=== PATIENT | male | born 1985 | race Caucasian/White ===

== ENCOUNTER 2023-06-23 11:37 | Outpatient (REF) | payer MEDICAID, SELFPAY ==
[2023-06-26 20:58] LABS: TS Negative Control Passed; TS Panel A 1; TS Panel B 28; TS Positive Control Passed; TSpotTB Positive (Negative)
== END 2023-06-23 11:38 | disposition home or self-care (01) ==
LOC: HO.CHCLDS 11:37
PROVIDERS: Visit Provider Student in an Organized Health Care Education/Training Program
DX: Z11.1 Encounter for screening for respiratory tuberculosis (principal)
CPT/HCPCS: 36415; 86481

== ENCOUNTER 2023-07-07 08:54 | Outpatient (REF) | payer MEDICAID, SELFPAY ==
--- NOTE | ~2023-07-07 | XR_ITS ---
EXAMINATION: XR CHEST CLINICAL INFORMATION: Positive TB test COMPARISON: None available. TECHNIQUE: 2 views of the chest were obtained. FINDINGS: No significant abnormality is noted involving the heart, lungs, mediastinum, bony thorax or soft tissues. XR/XR chest 2V IMPRESSION: No evidence of acute or chronic tuberculosis seen
== END 2023-07-07 08:55 | disposition home or self-care (01) ==
LOC: HO.HHCX 08:54
PROVIDERS: Visit Provider Student in an Organized Health Care Education/Training Program
DX: R76.11 Nonspecific reaction to tuberculin skin test without active tuberculosis (principal)
CPT/HCPCS: 71046

== ENCOUNTER 2024-07-09 09:31 | Outpatient (REF) | payer MEDICAID, SELFPAY ==
[2024-07-09 15:04] LABS: Alanine Aminotransferase 22 U/L (0-40); Albumin Level 4.3 g/dL (3.5-5.0); Alkaline Phosphatase 50 U/L (39-117); Anion Gap 12 (12-20); Aspartate Amino Transferase 20 U/L (5-37); Bilirubin Direct 0.1 mg/dL (0.0-0.5); Bilirubin Total 0.5 mg/dL (0.0-1.0); Blood Urea Nitrogen 21 mg/dL (9-16); Calcium 9.8 mg/dL (8.4-10.2); Carbon Dioxide 26 mmol/L (22-29); Chloride 105 mmol/L (96-108); Cholesterol 264 mg/dL (<200); Estimated Glomerular Filt Rate > 60; Glucose Random 218 mg/dL (60-115); HDL Cholesterol 46 mg/dL (>40); LDL Cholesterol Calculated 194 mg/dL (<100); Potassium 4.3 mmol/L (3.3-5.1); Sodium 139 mmol/L (135-145); Total Protein 7.5 g/dL (6.5-8.0); Triglycerides 122 mg/dL (<150)
== END 2024-07-09 09:32 | disposition home or self-care (01) ==
LOC: HO.CHCLDS 09:31
PROVIDERS: Visit Provider Student in an Organized Health Care Education/Training Program
DX: E11.9 Type 2 diabetes mellitus without complications (principal); I10 Essential (primary) hypertension; Z79.4 Long term (current) use of insulin
CPT/HCPCS: 36415; 80048; 80061; 80076

== ENCOUNTER 2025-11-05 11:21 | Outpatient (REF) | payer MEDICAID, SELFPAY ==
--- OUTSIDE RECORDS SUMMARY | 2025-11-05 10:45 | XMS_ITS | Encounter Summary ---
Author Organization [employer] Address [address] [place] [address] 7 [place] [address] Care Team Providers Care Instruction Dean Name Role Phone Sumit Nieto CNP Primary Care Provider [phone] Reason for Referral * Consultation (Routine) - Pending Review Specialty Diagnoses / Procedures Referred By Jonh sena Referred To Contact Urology Diagnoses Erectile dysfunction, unspecified erectile dysfunction type Sumit Nieto CNP [address] [place] [address] Phone: tel: fax: Referral ID Status Reason Start Date Expiration Date Visits Requested Visits Authorized [id number] Pending Review Specialty Services Required 5 11/05/2026 1 1 Encounter Details Date Type Department Care Team (Late st Contact Info) Description 11/05/2025 10:45 AM EST Office Visit [facility] [address] [place] [address] Sumit Nieto CNP [address] [place] [address] Essential hypertension (Primary Dx); Hypercholesteremia; Type 2 diabetes mellitus without complication, without long-term current use of insulin (HCC); Encounter to establish care; Erectile dysfunction, unspecified erectile dysfunction type; Encounter for immunization Social History Tobacco Use Types Packs/Day Years Used Date Smoking Tobacco: Never Smokeless Tobacco: Never Depression Answer Date Recorded Patient Health Questionnaire-9 Score 1 08/15/2024 Patient Health Questionnaire-9 Score 1 08/15/2024 Last PHQ-9: Questionnaire Data Not on file 1 Housing Stability Answer Date Recorded What is your housing situation today? I have [place] 09/11/[address] you li ve. Do you have problems with any of the following? None of the above 09/11/2023 Food Insecurity Answer Date Recorded Within the past 12 months, y ou worried that your food would run out before you got money to buy more: Never True 09/11/2023 Within the past 12 months,th e food you bought just didn't last and you didn't have enough money to get more: Never True Transportation Answer Date Recorded In the past 12 months, has l ack of transportation kept you from medical appts, meetings, work or from getting things needed for daily living? No 09/11/2023 Utilities Answer Date Recorded In the past 12 months, has t he electric, gas, oil or water company threatened to shut off services in your home? No 09/11/2023 Depression Answer Date Recorded Patient Health Questionnaire-2 Score 0 08/15/2024 Sex and Gender Information Value Date Recorded Sex Assigned at Male 09/12/2022 10:20 AM EDT Legal Sex Male 10:20 AM EDT Gender Identity Male 09/12/2022 10:20 AM EDT Sexual Orientation Choose not to disclose 2021 10:20 AM EDT documented as of this encounter Last Filed Vital Signs Vital Sign Reading Time Taken Comments Blood Pressure 156/100 11/05/2025 10:56 AM EST Pulse 92 11/05/2025 10:56 AM EST Temperature 36.7 C (98.1 F) 11/05/2025 10:56 AM EST Respiratory Rate 16 11/05/2025 10:56 AM EST Oxygen Saturation 98% 11/05/2025 10:56 AM EST Inhaled Oxygen Concentration - - Weight 82.1 kg (181 lb) 11/05/2025 10:56 AM EST Height 170.8 cm (5' 7.25 ) 11/05/2025 10:[address] Body Mass Index 28.14 11/05/2025 10:56 AM EST documented in this encounter Plan of Treatment Scheduled Orders Name Type Priority Associated Diagnoses Orde r Schedule Lipid Panel, Standard Lab Today Type 2 diabetes mellitus without complication, without long-term current use of insulin (HCC) Ordered: 11/05/2025 Hemoglobin A1c Lab Today Type 2 diabetes mellitus without complication, without long-term current use of insulin (HCC) Ordered: 11/05/2025 CBC auto differential Lab Today Type 2 diabetes mellitus without complication, without long-term current use of insulin (HCC) Ordered: 11/05/2025 Comprehensive Metabolic Panel Lab Today Type 2 diabetes mellitus without complication, without long-term current use of insulin (HCC) Ordered: 11/05/2025 Albumin, Random Urine W/Creatinine Lab Today Type 2 diabetes mellitus without complication, without long-term current use of insulin (HCC) Ordered: 11/05/2025 Hepatitis C Antibody with Reflex to HCV, RNA, Quantitative, Real-Time PCR Lab Today Encounter to establish care Ordered: 11/05/2025 HIV-1/2 Antigen and Antibodies, Fourth Generation, with Reflexes Lab Today Encounter to establish care Ordered: 11/05/2025 PSA, Total With Reflex to PSA, Free Lab Routine Encounter to establish care Expected: 11/05/2025 (Approximate), Expires: 11/05/2026 TSH W/Reflex to FT4 Lab Routine Encounter to establish care Expected: 11/05/2025 (Approximate), Expires: 11/05/2026 Vitamin D, 25-Hydroxy, Total, Immunoassay Lab Routine Encounter to establish care Expected: 11/05/2025 (Approximate), Expires: 11/05/2026 Scheduled Referrals Name Type Priority Associated Diagnoses Orde r Schedule Referral to Urology Outpatient Referral Routine Erectile dysfunction, unspecified erectile dysfunction type Expected: 11/05/2025 (Approximate), Expires: 11/05/2026 documented as of this encounter Goals Goal Patient Goal Type Associated Problems Recent Progress Patient-Stated? Author Help patients manage their type 2 diabetes Care Plan Help patients manage their type 2 diabetes No Sumit Nieto CNP Weekly blood pressure task Care Plan Weekly blood pressure task No Sumit Nieto CNP Help patients manage their type 2 diabetes Care Plan Help patients manage their type 2 diabetes No Sumit Nieto CNP Patient has chronic kidney disease Care Plan Patient has chronic kidney disease No Sumit Nieto CNP Weekly blood pressure task Care Plan Weekly blood pressure task No Sumit Nieto CNP Patient has chronic kidney disease Care Plan Patient has chronic kidney disease No Sumit Nieto CNP documented as of this encounter Procedures Procedure Name Priority Date/Time Associated Diagnosis Comments POCT GLYCATED HEMOGLOBIN, TOTAL Routine 11/05/2025 10:58 AM EST Type 2 diabetes mellitus without complication, without long-term current use of insulin ([facility]) POCT GLUCOSE (CPT-88562) Routine 11/05/2025 10:57 AM EST Type 2 diabetes mellitus without complication, without long-term current use of insulin ([facility]) documented in this encounter Results * (ABNORMAL) POCT A1c (11/05/2025 10:58 AM EST) Hemoglobin A1C 9.2(A) 4.0 - 5.7 % QC Media Lot # Comment:[id number] Lot# Expiration Date Comment:10/17/2027 Blood 11/05/2025 10:5 8 AM EST Result [facility] POINT OF CARE TEST ENTER/ EDIT ORDERABLES Final Result * (ABNORMAL) POCT glucose manually resulted (CPT-98191) (11/05/2025 10:57 AM EST) Glucose Blood, POC 237(A) 60 - 200 mg/dL QC Media Lot # Comment:[id number] Lot# Expiration Date Comment:02/17/2026 Blood Capillary blood specimen / Unknown 11/05/2025 10:57 AM EST [facility] POINT OF CARE TEST ENTER/ EDIT ORDERABLES Final Result documented in this encounter Visit Diagnoses Diagnosis Essential hypertension- Primary Unspecified essential hypertension Hypercholesteremia Pure hypercholesterolemia Type 2 diabetes mellitus without complication, without long-term current use of insulin ([facility]) Encounter to establish care Erectile dysfunction, unspecified erectile dysfunction type Encounter for immunization documented in this encounter Additional Health Concerns Active Problems Noted Date Diagnosed Date Help patients manage their type 2 diabetes 11/04 Weekly blood pressure task 11/04/2025 Help patients manage their type 2 diabetes 11/04 Patient has chronic kidney disease 11/04/2025 Weekly blood pressure task 11/05/2025 Patient has chronic kidney disease 11/05/2025 Assessment Noted Time PHQ-9 Depression Total Score: 1 08/15/20 24 9:51 AM EDT documented as of this encounter Care Teams Instruction Dean Relationship Specialty Start Date End Date Sumit Nieto CNP [address] [place] [id number] PCP - General Family Medicine 09/09/25 documented as of this encounter
--- OUTSIDE RECORDS SUMMARY | 2025-11-05 11:25 | XMS_ITS | Encounter Summary ---
Author Organization [employer] Address [address] [facility] [address] [place] [address] Care Team Providers Care Physical Therapy Director Name Role Phone Jayla Ramos MD Primary Care Provider [phone] Sumit Nieto CNP Primary Care Provider [phone] Reason for Visit * Reason Onset Date Comments Lab Orders 05/24/2024 Encounter Details Date Type Department Care Team ([facility] st Contact Info) Description 05/24/2024 Telephone [facility] MEDICINE [address] [place] [address] Jayla Ramos MD [address] [place] [address] Lab Orders Social History Tobacco Use Types Packs/Day Years Used Date Smoking Tobacco: Never Assessed Housing Stability Answer Date Recorded What is [...] off services in your home? No 09/11/2023 Sex and Gender Information Value Date Recorded Sex Assigned at Male 09/12/2022 10:20 AM EDT Legal Sex Male 10:20 AM EDT Gender Identity Male 09/12/2022 10:20 AM EDT Sexual Orientation Choose not to disclose 2021 10:20 AM EDT documented as of this encounter Miscellaneous Notes * Telephone Encounter - Dana Clarke RN - 05/27/2024 3:59 PM EDT Pt no showed to last f/u appt. Please call to r/s for new lab orders. * Telephone Encounter - Dung Reyna - 05/24/2024 10:18 AM EDT Tc from the patients EC requesting lab orders on behalf of the patient states has not done labs forquiet some time documented in this encounter Plan of Treatment Not on file documented as of this encounter Visit Diagnoses Not on filedocumented in this encounter Care Teams Physical Therapy Director Relationship Specialty Start Date End Date Jayla Ramos MD [address] [place] [address] PCP - General Family Medicine 10/25/12 09/08/25 Sumit Nieto CNP [address] [place] [id number] PCP - General Family Medicine 09/09/25 documented as of this encounter
--- OUTSIDE RECORDS SUMMARY | 2025-11-05 11:25 | XMS_ITS | Clinical Summary ---
Author Organization [facility] Address [address] [place] [id number] Care Team Providers Care Glove Tagger Name Role Phone Unavailable Primary Care Provider Unavailabl e Social History Tobacco Use Types Packs/Day Years Used Date Smoking Tobacco: Never Smokeless Tobacco: Never Sex and Gender Information Value Date Recorded Sex Assigned at Not on file Legal Sex Male 1:15 PM EST Gender Identity Not on file Sexual Orientation Not on file Last Filed Vital Signs Vital Sign Reading Time Taken Comments Blood Pressure - - Pulse - - Temperature - - Respiratory Rate - - Oxygen Saturation - - Inhaled Oxygen Concentration - - Weight 83.9 kg (185 lb) 03/25/2022 11:31 AM EDT Height 167.6 cm (5' 6 ) 03/25/2022 11:31 AM EDT Body Mass Index 29.86 03/25/2022 11:31 AM EDT Plan of Treatment Health Maintenance Due Date Last Done Comments DTaP,Tdap,and Td Vaccines (1 - Tdap) 2002 Hepatitis B Vaccines (1 of 3 - 19+ 3-dose series) 2002 HPV Vaccines (1 - 3-dose SCD M series) 2010 Depression Screening 11/13/2024 COVID-19 Vaccine (3 - 2024-2 6 season) 2025 08/29/2021, 07/29/2021 Influenza Vaccine (#1) 2025 07/23/2012 RSV Immunization Adult Patients (1 - 1-dose 75+ series) 2058 HIB Vaccines Aged Out No longer eligi ble based on patient's age to complete this topic Hepatitis A Vaccines Aged Out No long er eligible based on patient's age to complete this topic IPV Vaccines Aged Out No longer eligi ble based on patient's age to complete this topic MMR Vaccines Aged Out No longer eligi ble based on patient's age to complete this topic Meningococcal ACWY Vaccine Aged Out N o longer eligible based on patient's age to complete this topic Meningococcal B Vaccine Aged Out No l onger eligible based on patient's age to complete this topic Pneumococcal Vaccine: Pediatrics (0 to 5 Years) and At-Risk Patients (6 to 49 Years) Aged Out No longer eligible b ased on patient's age to complete this topic RSV Immunization Patients Under 20 months Aged Out No longer eligible b ased on patient's age to complete this topic Varicella Vaccines Aged Out No longer eligible based on patient's age to complete this topic
--- OUTSIDE RECORDS SUMMARY | 2025-11-05 11:25 | XMS_ITS | Clinical Summary ---
Author Organization [employer] Address [address] [place] [address] 7[address] [place] [address] Care Team Providers Care Product/Industry Consultant Name Role Phone Sumit Nieto CHINTAN Primary Care Provider [phone] Allergies No known active allergies Medications lisinopril 40 MG tablet TAKE ONE TABLET DAILY 023 Active insulin glargine (Lantus SoloStar) 100 UNIT/ML penIndication s:Type 2 diabetes mellitus without complication, with long-term current use of insulin ([facility]) INJECT 20 UNITS SUBCUTANEOUSLY AT BEDTIME 15 mL 11 024 Active Aspirin Adult Low Strength 81 MG EC tabletIndicat ions:Type 2 diabetes mellitus without complication, with long-term current use of insulin ([facility]) TAKE ONE TABLET BY MOUTH EVERY MORNING 90 tablet 3 024 Active tadalafil (Cialis) 5 MG tablet TAKE ONE TABLET EVERY DAY 10 tablet 024 Active ibuprofen 800 MG tablet TAKE ONE TABLET THREE TIMES DAILY 90 tablet 5 025 Active metFORMIN (Glucophage) 1000 MG tablet TAKE ONE TABLET TWICE DAILY 180 tablet 3 025 Active Easy Touch Lancets 33G/Twist miscIndicatio ns:Type 2 diabetes mellitus without complication, without long-term current use of insulin ([facility]) TEST BLOOD SUGAR TWICE DAILY 100 each 5 025 Active FREESTYLE LITE test stripIndicati ons:Type 2 diabetes mellitus without complication, without long-term current use of insulin ([facility]) TEST BLOOD SUGAR TWICE DAILY 100 strip 5 025 Active Diclofenac Sodium 1 % gel APPLY 2 GRAM'S TO AFFECTED AREA(s) THREE TIMES DAILY NEEDED 100 g 1 025 Active simvastatin (Zocor) 40 MG tablet TAKE ONE TABLET AT BEDTIME 90 tablet 1 025 Active valsartan (Diovan) 40 MG tablet TAKE ONE TABLET EVERY MORNING 90 tablet 1 025 Active amLODIPine (Norvasc) 5 MG tablet TAKE ONE TABLET EVERY DAY 90 tablet 1 025 Active Farxiga 5 MG TAKE ONE TABLET EVERY DAY 90 tablet 1 025 Active glipiZIDE (Glucotrol) 10 MG tabletIndicat ions:Type 2 diabetes mellitus without complication, without long-term current use of insulin (HCC) Take 1 tablet (10 mg) by mouth before breakfast and before evening meal. 360 tablet 1 025 Active glipiZIDE (Glucotrol) 10 MG tablet TAKE TWO TABLETS TWICE DAILY BEFORE MEALS 360 tablet 1 025 2024 Discontinued(R eorder (will not trigger notification to Pharmacy)) Active Problems Problem Noted Date Diagnosed Date Chronic pain of right knee 12/28/2023 Assessment & Plan (12/28/2023 11:19 PM EST): No swelling, no trauma, no erythema, will order a xray for evaluation, continue applying ice/rest joint, avoid heavy lifting, will prescribe voltaren gel Abdominal pain 01/10/2012 Diabetes mellitus 01/10/2012 Essential hypertension 09/13/2011 Otitis media 08/30/2011 Skin sensation disturbance 03/31/2011 Encounters Date Type Department Care Team Description 11/05/2025 10:45 AM EST Office Visit [facility] & PEDS [address] [place] [address] Sumit Nieto CNP Essential hypertension (Primary Dx); Hypercholesteremia; Type 2 diabetes mellitus without complication, without long-term current use of insulin (HCC); Encounter to establish care; Erectile dysfunction, unspecified erectile dysfunction type; Encounter for immunization 11/05/2025 Travel 08/13/2025 Refill [facility] [address] [place] [address] Jayla Ramos MD from Last 3 Months Immunizations Immunization Administration Dates Next Due Influenza, Split (incl. purified surface antigen ) 07/23/2012 Pneumococcal Conjugate PCV 20 11/05/2025 Tdap 08/15/2024 Social History Tobacco Use Types Packs/Day Years Used Date Smoking Tobacco: Never Smokeless Tobacco: Never Tobacco Cessation:Counseling Given: Not Answered Depression Answer Date Recorded Patient Health Questionnaire-9 [...] not to disclose 2021 10:20 AM EDT Last Filed Vital Signs Vital Sign Reading [...] Mass Index 28.14 11/05/2025 10:56 AM EST Plan of Treatment Health Maintenance Due Date Last Done Comments HIV Screening 1983 Disability Screening 1983 Eye Exam 1993 Alcohol/Substance Use Screening 1995 Family Planning (PISQ) 1998 HPV Vaccines (1 - Male 3-dose series) 1998 Hepatitis C Screening 2001 Hepatitis B Vaccines (1 of 3 - 19+ 3-dose series) 2002 Diabetes: Urine Protein Screening 08/04/2022 08/04/2021, 08/04/2021 SDOH Screening 01/21/2025 01/22/2024 Lipid Panel 07/09/2025 07/09/2024, 08/04/2021 COVID-19 Vaccine ( - season) 2025 08/29/2021, 07/29/2021 Influenza Vaccine (#1) 2025 07/23/2012 Depression Screening 08/15/2025 08/15/2024, 08/15/20 Diabetes: Foot Exam 08/15/2025 08/15/2024, 08/15/2024, 08/15/2024, Additional history exists Tobacco Screening 08/15/2025 08/15/2024 Diabetes: Hemoglobin A1C 02/03/2026 025, 07/09/2024, 12/28/2023, Additional history exists Zoster Vaccines (1 of 2) 2033 DTaP/Tdap/Td Vaccines (2 - Td or Tdap) 08/15/2034 08/15/2024 RSV Patients and Patients Aged 60 years or older (1 - 1-dose 75+ series) 2058 Pneumococcal Vaccine: Pediatrics (0 to 5 Years) and At-Risk Patients (6 to 49) Years Completed 11/05/2025 HIB Vaccines Aged Out No longer eligi [...] patient's age to complete this topic Meningococcal Vaccine Aged Out No umm yasmeen eligible based on patient's age to complete this topic RSV under 20 months Aged Out No longe r eligible based on patient's age to complete this topic Rotavirus Vaccines Aged Out No longer eligible based on patient's age to complete this topic Goals Goal Patient Goal Type Associated Problems [...] chronic kidney disease No Sumit Nieto CNP Procedures Procedure Name Priority Date/Time Associated Diagnosis Comments POCT GLYCATED HEMOGLOBIN, TOTAL Routine 11/05/2025 10:58 AM EST Type 2 diabetes mellitus without complication, without long-term current use of insulin ([facility]) POCT GLUCOSE (CPT-47203) Routine 11/05/2025 10:57 AM EST Type 2 diabetes mellitus without complication, without long-term current use of insulin ([facility]) LIPID PANEL, STANDARD Routine 07/09/2024 9:33 AM EDT Type 2 diabetes mellitus without complication, with long-term current use of insulin ([facility]) ALBUMIN, RANDOM URINE W/CREATININE Routine 08/04/2021 9:04 AM EDT from Last 3 Months or Most Recently Relevant to Health Maintenance Results * (ABNORMAL) POCT A1c (11/05/2025 10:58 AM EST) Hemoglobin A1C 9.2(A) 4.0 - 5.7 % QC Media Lot # Comment:[id number] Lot# Expiration Date Comment:10/17/2027 Blood 11/05/2025 10:5 8 AM EST Result [facility] POINT OF CARE TEST ENTER/ EDIT ORDERABLES Final Result * (ABNORMAL) POCT glucose manually resulted (CPT-80583) (11/05/2025 10:57 AM EST) Glucose Blood, POC 237(A) 60 - 200 mg/dL QC Media Lot # Comment:[id number] Lot# Expiration Date Comment:02/17/2026 Blood Capillary blood specimen / Unknown 11/05/2025 10:57 AM EST Result [facility] POINT OF CARE TEST ENTER/ EDIT ORDERABLES Final Result * (ABNORMAL) Lipid Panel, Standard (07/09/2024 9:33 AM EDT) Triglycerides 122 <150 mg/dL [facility] Comment:Desirable Triglyceri de: less than 150 mg/dLBorderline High Triglyceride 150-199 mg/dLHigh Triglyceride: 200-499 mg/dLVery High Triglyceride: greater than or equal to 5OO mg/dL Cholesterol 264(H) <200 mg/dL [facility] Comment:Desirable Cholestero l: less than 200 mg/dLBorderline High Cholesterol: 200-239 mg/dLHigh Cholesterol: greater than 239 mg/dL LDL Cholesterol Calculated 194(H) <100 mg/dL [facility] Comment:Desirable LDL: less than 100 mg/dLNear Optimal/Above Optimal LDL: 110- 129 mg/dLBorderline High LDL: 130-159 mg/dLHigh LDL: 160-189 mg/dLVery High LDL: greater than or equal to 190 mg/dL HDL Cholesterol 46 >40 mg/dL [facility] Comment:Desirable HDL: great er than 40 mg/dL Note: This HDL assay may give artificially low results in patients with liver disease. Blood Venous blood specimen / Unknown 07/09/2024 9:33 AM EDT 07/09/2024 2:38 PM EDT Result [facility] Jayla Ramos MD LAB BLOOD ORDERABLES Final Resul t [facility] [address] [place] [address] [phone] * ALBUMIN, RANDOM URINE W/CREATININE (08/04/2021 9:04 AM EDT) Microalbumin Urine 0.5 See Note: mg/dL [facility] Comment: Reference Range: Reference Range Not established Microalb/Creat Ratio 2 <30 mcg/mg creat [facility] Comment: The ADA defines abnormalities in albumin excretion as follows: Albuminuria Category Result (mcg/mg creatinine) Normal to Mildly increased <30 Moderately increased 30-299 Severely increased > OR = 300 The ADA recommends that at least two of three specimens collected within a 3-6 month period be abnormal before considering a patient to be within a diagnostic category. Creatinine, Urine 207 20 - 320 mg/dL [facility] 08/04/2021 9:04 AM EDT us Yared Kowalski MD LAB URINE ORDERABL ES Final Result Performing Organization Address City/[facility]/ZIP Co de Phone Number [facility] [address] [place] [address], from Last 3 Months or Most Recently Relevant to Health Maintenance Additional Health Concerns Active Problems Noted Date Diagnosed Date Help patients manage their type 2 diabetes 11/04 Weekly blood pressure task 11/04/2025 Help patients manage their type 2 diabetes 11/04 Patient has chronic kidney disease 11/04/2025 Weekly blood pressure task 11/05/2025 Patient has chronic kidney disease 11/05/2025 Insurance PLAXD C3 Care Teams Product/Industry Consultant Relationship Specialty Start Date End Date Sumit Nieto CNP [address] [place] [id number] PCP - General Family Medicine 09/09/25
--- OUTSIDE RECORDS SUMMARY | 2025-11-05 11:25 | XMS_ITS | Encounter Summary ---
Author Organization [employer] Address [address] [place] [address] [place], [place] [address] Care Team Providers Care Television Mechanic Name Role Phone Jayla Ramos MD Primary Care Provider [phone] Sumit Nieto CNP Primary Care Provider [phone] Encounter Details Date Type Department Care Team (Late st Contact Info) Description 08/10/2023 [facility] [employer] [address] [place], [place] [phone] Jayla Ramos MD [address] [place] [address] Social History Tobacco Use Types Packs/Day Years Used Date Smoking Tobacco: Never Assessed Sex and Gender Information Value Date Recorded Sex Assigned at Male 09/12/2022 10:20 AM EDT Legal Sex Male 10:20 AM EDT Gender Identity Male 09/12/2022 10:20 AM EDT Sexual Orientation Choose not to disclose 2021 10:20 AM EDT documented as of this encounter Plan of Treatment Not on file documented as of this encounter Visit Diagnoses Not on filedocumented in this encounter Care Teams Television Mechanic Relationship Specialty Start Date End Date Jayla Ramos MD [address] [place] [address] PCP - General Family Medicine 10/25/12 09/08/25 Sumit Nieto CNP [address] [place] [address] PCP - General Family Medicine 09/09/25 documented as of this encounter
--- OUTSIDE RECORDS SUMMARY | 2025-11-05 11:25 | XMS_ITS | Encounter Summary ---
Author Organization [employer] Address [address] [facility] 7t [place] [address] Care Team Providers Care Vendor Management Associate Name Role Phone Sumit Nieto CHINTAN Primary Care Provider [phone] Encounter Details Date Type Department Care Team (Latest Contact Info) Description 11/05/2025 Travel Social History Tobacco Use Types Packs/Day Years [...] on file documented as of this encounter Goals Goal [...] Nieto CNP documented as of this encounter Visit Diagnoses Not on filedocumented in this encounter Additional Health Concerns Active [...] documented as of this encounter Care Teams Vendor Management Associate Relationship Specialty Start Date End Date Sumit Nieto CNP [address] [place] [address] PCP - General Family Medicine 09/09/25 documented as of this encounter
--- OUTSIDE RECORDS SUMMARY | 2025-11-05 11:25 | XMS_ITS | Encounter Summary ---
Author Organization [employer] Address [address] [place] [address] 7 [place] [address] Care Team Providers Care Cooper Apprentice Name Role Phone Jayla Ramos MD Primary Care Provider [phone] Sumit Nieto CNP Primary Care Provider [phone] Encounter Details Date Type Department Care Team (Late st Contact Info) Description 02/02/2023 Orders Only [facility] MEDICINE [address] [place] [address] Evangelina Jimenez LPN Social History Tobacco Use Types Packs/Day Years [...] on filedocumented in this encounter Care Teams Cooper Apprentice Relationship Specialty Start Date End Date Jayla Ramos MD [address] [place] [address] PCP - General Family Medicine 10/25/12 09/08/25 Sumit Nieto CNP [address] [place] [address] PCP - General Family Medicine 09/09/25 documented as of this encounter
--- OUTSIDE RECORDS SUMMARY | 2025-11-05 11:25 | XMS_ITS | Encounter Summary ---
Author Organization [employer] Address [address] [place] [address] 7t [place] [address] Care Team Providers Care Wellness Rn Name Role Phone Jayla Ramos MD Primary Care Provider [phone] Sumit Nieto CNP Primary Care Provider [phone] Encounter Details Date Type Department Care Team (Late st Contact Info) Description 11/25/2022 Orders Only [facility] CHC MED & PEDS [address] [place], [place] [phone] Pippa Harding LPN Social History Tobacco Use Types Packs/Day [...] on filedocumented in this encounter Care Teams Wellness Rn Relationship Specialty Start Date End Date Jayla Ramos MD [address] [place] [address] PCP - General Family Medicine 10/25/12 09/08/25 Sumit Nieto CNP [address] [place] [address] PCP - General Family Medicine 09/09/25 documented as of this encounter
--- OUTSIDE RECORDS SUMMARY | 2025-11-05 11:25 | XMS_ITS | Encounter Summary ---
Author Organization [employer] Address [address] [facility] 7t [place] [address] Care Team Providers Care Chip Loft Worker Name Role Phone Jayla Ramos MD Primary Care Provider [phone] Sumit Nieto CNP Primary Care Provider [phone] Reason for Visit * Reason Onset Date Comments Nurse Triage 05/24/2024 Encounter Details Date Type Department Care Team ([facility] st Contact Info) Description 05/24/2024 Telephone [facility] MEDICINE [address] [place] [address] Jayla Ramos MD [address] [place] [address] Nurse Triage Social History Tobacco Use Types Packs/Day Years [...] encounter Miscellaneous Notes * Telephone Encounter - Dung Reyna - 05/24/2024 10:16 AM EDT Symptom: Finger Pain - Not From Injury Outcome: Schedule an urgent appointment (within 1 hour) or talk to a nurse or provider soon Reason: Can't use the finger normally The caller accepted this outcome Patient speaks zimbabwean documented in this encounter Plan of Treatment Not on file documented as of this encounter Visit Diagnoses Not on filedocumented in this encounter Care Teams Chip Loft Worker Relationship Specialty Start Date End Date Jayla Ramos MD [address] [place] [address] PCP - General Family Medicine 10/25/12 09/08/25 Sumit Nieto CNP [address] [place] [address] PCP - General Family Medicine 09/09/25 documented as of this encounter
--- OUTSIDE RECORDS SUMMARY | 2025-11-05 11:25 | XMS_ITS | Encounter Summary ---
Author Organization [employer] Address [address] [place] [address] 7t [place] [address] Care Team Providers Care Women'S Lacrosse Coach Name Role Phone Jayla Ramos MD Primary Care Provider Sumit Nieto CNP Primary Care Provider [phone] Encounter Details Date Type Department Care Team (Late st Contact Info) Description 04/28/2023 Orders Only [facility] CHC MED & PEDS [address] [place], [place] [phone] Pippa Harding LPN Social History Tobacco Use [...] on filedocumented in this encounter Care Teams Women'S Lacrosse Coach Relationship Specialty Start Date End Date Jayla Ramos MD [address] [place] [address] PCP - General Family Medicine 10/25/12 09/08/25 Sumit Nieto CNP [address] [place] [address] PCP - General Family Medicine 09/09/25 documented as of this encounter
--- OUTSIDE RECORDS SUMMARY | 2025-11-05 11:25 | XMS_ITS | Encounter Summary ---
Author Organization [employer] Address [address] [facility] 7 [place] [address] Care Team Providers Care Steam Hoist Operator Name Role Phone Jayla Ramos MD Primary Care Provider [phone] Sumit Nieto CNP Primary Care Provider [phone] Encounter Details Date Type Department Care Team (Late st Contact Info) Description 06/28/2023 Orders Only 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) Social History Tobacco Use Types Packs/Day Years Used Date Smoking Tobacco: Never Assessed Sex and Gender Information Value Date Recorded Sex Assigned at Male 09/12/2022 10:20 AM EDT Legal Sex Male 10:20 AM EDT Gender Identity Male 09/12/2022 10:20 AM EDT Sexual Orientation Choose not to disclose 2021 10:20 AM EDT documented as of this encounter Plan of Treatment Scheduled Orders Name Type Priority Associated Diagnoses Orde r Schedule XR Chest 2 Views Imaging Routine Positive TB test Expected: 06/28/2023 (Approximate), Expires: 06/28/2024 documented as of this encounter Visit Diagnoses Diagnosis Positive TB test- Primary documented in this encounter Care Teams Steam Hoist Operator Relationship Specialty Start Date End Date Jayla Ramos MD [address] [place] [address] PCP - General Family Medicine 10/25/12 09/08/25 Sumit Nieto CNP [address] [place] [address] PCP - General Family Medicine 09/09/25 documented as of this encounter
--- OUTSIDE RECORDS SUMMARY | 2025-11-05 11:25 | XMS_ITS | Encounter Summary ---
Author Organization [employer] Address [address] [facility] 7t [place] [address] Care Team Providers Care Bank Analyst Name Role Phone Jayla Ramos MD Primary Care Provider Sumit Nieto CNP Primary Care Provider [phone] Encounter Details Date Type Department Care Team (Late st Contact Info) Description 09/25/2024 Orders Only [facility] [address] [place], [place] [phone] Provider, MD Mary Jane Social History Tobacco Use Types Packs/Day Years Used Date Smoking Tobacco: Never Smokeless Tobacco: Never Depression Answer Date Recorded Patient Health Questionnaire-9 Score 1 08/15/2024 Patient Health Questionnaire-9 Score 1 08/15/2024 Last PHQ-9: Questionnaire Data Not on file 1 Housing Stability Answer Date Recorded What is your housing situation today? I have wadechrissie carolina 09/11/[address] you [...] on file documented as of this encounter Procedures Procedure Name Priority Date/Time Associated Diagnosis Comments PSA, SCREEN Routine 09/18/2024 11:07 AM EST documented in this encounter Results * PSA, Screen (09/18/2024 11:07 AM EST) Blood Venous blood specimen / Unknown us Historical Provider LAB BLOOD ORDERABLES Jessica l Result documented in this encounter Visit Diagnoses Not on filedocumented in this encounter Additional Health Concerns Assessment Noted Time PHQ-9 Depression Total Score: 1 08/15/20 24 9:51 AM EDT documented as of this encounter Care Teams Bank Analyst Relationship Specialty Start Date End Date Jayla Ramos MD [address] [place] [address] PCP - General Family Medicine 10/25/12 09/08/25 Sumit Nieto CNP [address] [place] [address] PCP - General Family Medicine 09/09/25 documented as of this encounter
[2025-11-05 14:58] LABS: MANUAL DIFF FLAG NO
[2025-11-05 15:17] LABS: Hematocrit 43.2 % (42.0-52.0); Hemoglobin 14.9 g/dl (14.0-18.0); Imm Gran Abs Auto 0.01 X10*3/uL (0.00-0.03); Imm Gran Pct Auto 0.1 % (0.0-0.4); Lymphocytes Absolute Auto 3.1 X10*3/uL (1.2-4.9); Mean Corpuscular HGB Conc 34.5 g/dl (31.0-36.0); Mean Corpuscular Hemoglobin 30.3 pg (27.0-33.0); Mean Corpuscular Volume 88.0 fL (80.0-98.0); NRBC Abs Auto 0.000 X10*3/uL (0.0-0.012); NRBC Pct Auto 0.0 /100WBC (0.0-0.2); Platelet Count 266 X10*3/uL (160-400); Red Blood Count 4.91 X10*6/uL (4.60-5.80); White Blood Count 7.3 X10*3/uL (4.8-10.8)
[2025-11-05 15:36] LABS: Microalbum/Creatinine Ratio Ur 5.5 ug/mg cr (<30)
[2025-11-05 16:29] LABS: PSA,Total (Free>4and<10) 0.35 ng/mL (0.00-4.00)
[2025-11-05 16:31] LABS: Alanine Aminotransferase 23 U/L (0-40); Albumin Level 4.7 g/dL (3.5-5.0); Alkaline Phosphatase 56 U/L (39-117); Anion Gap 11 (12-20); Aspartate Amino Transferase 25 U/L (5-37); Blood Urea Nitrogen 14 mg/dL (9-16); Calcium 9.8 mg/dL (8.4-10.2); Carbon Dioxide 26 mmol/L (22-29); Chloride 105 mmol/L (96-108); Cholesterol 227 mg/dL (<200); Estimated Glomerular Filt Rate > 60; HDL Cholesterol 52 mg/dL (>40); Potassium 4.2 mmol/L (3.3-5.1); Sodium 138 mmol/L (135-145); Total Protein 7.5 g/dL (6.5-8.0); Triglycerides 91 mg/dL (<150)
[2025-11-07 03:32] LABS: HIV Num 1 0.07 S/CO (0.00-0.99); ~HepC Num1 0.10 S/CO (0.00-0.79); ~Hepatitis C Antibody Nonreactive (Nonreactive)
== END 2025-11-05 11:22 | disposition home or self-care (01) ==
LOC: HO.CHCLDS 11:21
DX: Z11.4 Encounter for screening for human immunodeficiency virus [HIV] (principal); Z11.59 Encounter for screening for other viral diseases; E11.9 Type 2 diabetes mellitus without complications; Z76.89 Persons encountering health services in other specified circumstances
CPT/HCPCS: 36415; 80053; 80061; 82043; 82306; 82570; 83036; 84153; 84443; 85025; 86803; 87389